=== PATIENT | female | born 1975 | race Caucasian/White ===

== ENCOUNTER 2022-07-24 20:49 | Emergency (ER) | payer OTHER ==
[2022-07-24 21:06] VITALS: BP 162/100; PULSE 107; RESP 20; TEMP 99; BMI 37.8
[2022-07-24] MEDS ORDERED: ACETAMINOPHEN 1000 MG/100 ML BAG IVPB ONE (21:27)
[2022-07-24] MEDS ORDERED: LACTATED RINGERS SOLUTION 1000 ML INFUS.BAG IV ONE (21:28)
[2022-07-24] MEDS ORDERED: ACETAMINOPHEN INJECTION 100 ML IVPB ONE (22:08)
[2022-07-24 22:43] LABS: BASO % 0.4 % (0-2.0); EOS % 0.5 % (0-4.5); HEMATOCRIT 37.6 % (32.4-45.2); HEMOGLOBIN 12.6 GM/dL (10.7-15.3); LYMPH % 9.7 % (8-40); MCH 29.2 pg (25.7-33.7); MCHC 33.4 g/dl (32.0-36.0); MEAN CELL VOLUME 87.4 fl (80-96); MONO % 10.3 % (3.8-10.2); NEUT % 79.1 % (42.8-82.8); PLATELET COUNT 338 10^3/uL (134-434); RBC 4.31 M/mm3 (3.60-5.2); RDW 13.5 % (11.6-15.6); WHITE BLOOD COUNT 10.7 K/mm3 (4.0-10.0)
[2022-07-24 22:51] LABS: INR 1.03 (0.83-1.09); PROTHROMBIN TIME (PATIENT) 11.9 SEC (9.7-13.0)
[2022-07-24 22:54] LABS: ACTIVATED PTT 34.2 SECONDS (25.2-36.5)
[2022-07-24 23:11] LABS: CALCIUM 9.4 mg/dL (8.5-10.1)
[2022-07-24 23:13] LABS: ALBUMIN 3.7 g/dl (3.4-5.0)
[2022-07-24 23:15] LABS: CREATININE 0.7 mg/dL (0.55-1.3)
[2022-07-24 23:17] LABS: BILIRUBIN,TOTAL 0.3 mg/dL (0.2-1); TOT PROT 7.3 g/dl (6.4-8.2)
[2022-07-24 23:42] LABS: URINE APPEARANCE CLEAR; URINE BILIRUBIN NEGATIVE (NEGATIVE); URINE COLOR YELLOW; URINE GLUCOSE (UA) 1+ (NEGATIVE); URINE KETONE NEGATIVE (NEGATIVE); URINE LEUK ESTERASE NEGATIVE (NEGATIVE); URINE NITRITE NEGATIVE (NEGATIVE); URINE PROTEIN NEGATIVE (NEGATIVE); URINE UROBILINOGEN 0.2 mg/dL (0.2-1.0)
== END 2022-07-25 01:46 | disposition home or self-care (01) ==
LOC: JER 20:49
PROC: 3E033GC Introduction of Other Therapeutic Substance into Peripheral Vein, Percutaneous Approach (ICD-10-PCS; principal; 2022-07-24)
DX: U07.1 COVID-19 (principal); S20.211A Contusion of right front wall of thorax, initial encounter; W01.198A Fall on same level from slipping, tripping and stumbling with subsequent striking against other object, initial encounter
CPT/HCPCS: 0241U-QW; 36415; 70450-TC; 71260-TC; 72125-TC; 74177-TC; 80053; 81003; 84484; 84703; 85025; 85610; 85730; 87086; 93005; 93010; 99285-25; Q9967